=== PATIENT | male | born 1990 | race Hispanic/Latino ===

== ENCOUNTER → 2025-02-19 | Outpatient (CLI) | payer OTHER ==
--- NOTE | 2025-02-20 00:45 | HMCIMG ---
STUDY: MRI Lumbar Spine (Non-contrast) HISTORY: Low back pain with radicular symptoms. TECHNIQUE: Multiplanar, multisequence MRI of the lumbar spine performed without intravenous contrast, including sagittal and axial T1-weighted, T2-weighted, and STIR sequences. COMPARISON: None provided. FINDINGS: Alignment and Vertebral Bodies: Lumbar vertebral alignment is preserved. Vertebral body heights maintained. Endplate irregularities and marginal osteophytes noted at multiple levels consistent with spondylotic changes. Bone marrow signal intensity is normal. Intervertebral Discs: Advanced degenerative desiccation (Pfirrmann grade III???IV) of intervertebral discs at L3???L4, L4???L5, and L5???S1 with associated loss of disc height and signal intensity on T2-weighted images. Level-leahy Evaluation: At L3???L4, diffuse paracentral disc bulge causing mild indentation of the thecal sac and left grade I neural foraminal stenosis with contact and mild distortion of the exiting left L3 nerve root. At L4???L5, diffuse disc bulge with postero-central protrusion compressing the thecal sac and causing bilateral mild neural foraminal stenosis contacting the exiting nerve roots. At L5???S1, diffuse disc bulge with postero-central protrusion mildly indenting the thecal sac without significant foraminal or canal compromise. Facet Joints and Ligaments: Facet arthropathy and ligamentum flavum thickening noted at L3???L4 through L5???S1 levels, contributing to canal narrowing. Spinal Canal and Neural Foramina: No severe central canal stenosis. Foraminal narrowing as detailed above. No epidural mass or collection. Conus Medullaris and Cauda Equina: Conus terminates at L1 level and appears normal. Cauda equina roots show normal morphology and distribution. Paraspinal Soft Tissues: Paraspinal musculature and posterior elements are normal. No abnormal soft tissue or fluid collection. IMPRESSION: * Multilevel degenerative lumbar spondylosis with Pfirrmann grade III???IV disc desiccation at L3???L4, L4???L5, and L5???S1. * L3???L4 paracentral disc bulge causing mild thecal sac indentation and left grade I foraminal stenosis contacting the exiting left L3 nerve root. * L4???L5 diffuse disc bulge with postero-central protrusion compressing the thecal sac and bilateral mild foraminal narrowing. * L5???S1 diffuse disc bulge with postero-central protrusion causing mild thecal sac indentation without neural compromise. * Radiologic???clinical correlation indicates degenerative lumbar disc disease with neural element contact corresponding to lumbar radiculopathy. /[place]
== END | disposition home or self-care (01) ==
LOC: RAH 12:51
PROVIDERS: ATTEND Internal Medicine
DX: M47.26 Other spondylosis with radiculopathy, lumbar region (principal); M51.16 Intervertebral disc disorders with radiculopathy, lumbar region; M54.50 Low back pain, unspecified; M48.061 Spinal stenosis, lumbar region without neurogenic claudication; M25.78 Osteophyte, vertebrae
CPT/HCPCS: 72148